=== PATIENT | male | born 1985 | race American Indian/Alaskan Native ===

== ENCOUNTER 2017-08-12 15:43 | Emergency (ER) | payer SELFPAY ==
[2017-08-12] MEDS ORDERED: Sodium Chloride 0.9% 2.5 ML Syringe FLUSH PRN (15:49)
[2017-08-12] MEDS ORDERED: Albuterol/Ipratropium 3.0-0.5 MG/3 ML Neb Soln NEB ONE (15:49)
[2017-08-12] MEDS ORDERED: Sodium Chloride 0.9% 1,000 ML IV ONE (15:49)
[2017-08-12] MEDS ORDERED: Sodium Chloride 0.9% 10 ML Syringe FLUSH PRN (15:49)
--- NOTE | 2017-08-12 15:52 | EDM.PDOC ---
ED HPI GENERAL MEDICAL PROBLEM - General Stated Complaint: TROUBLE BREATHING Time Seen by Provider: 08/12/17 15:48 - History of Present Illness INITIAL COMMENTS - FREE TEXT/NARRATIVE: HISTORY AND PHYSICAL: History of present illness: Patient 32-year-old male who reports a history of lung cancer for which he has not been treated and refuses treatment who uses albuterol nebulizer and presents with a concern of shortness of breath and medication refill he denies fever chills nausea vomiting or other concern he does agree to some diagnostic testing and breathing treatment while he is here was not interested in any other evaluation or further treatment. Pulse oximetry on arrival 97% Review of systems: As per history of present illness and below otherwise all systems reviewed and negative. Past medical history: As per history of present illness and as reviewed below otherwise noncontributory. Surgical history: As per history of present illness and as reviewed below otherwise noncontributory. Social history: No reported history of drug or alcohol abuse. Family history: As per history of present illness and as reviewed below otherwise noncontributory. Physical exam: HEENT: Atraumatic, normocephalic, pupils reactive, negative for conjunctival pallor or scleral icterus, mucous membranes moist, throat clear, neck supple, nontender, trachea midline. Lungs: Clear to auscultation, breath sounds equal bilaterally, chest nontender. Heart: S1S2, regular, negative for clicks, rubs, or JVD. Abdomen: Soft, nondistended, nontender. Negative for masses or hepatosplenomegaly. Negative for costovertebral tenderness. Pelvis: Stable nontender. Genitourinary: Deferred. Rectal: Deferred. Extremities: Atraumatic, negative for cords or calf pain. Neurovascular unremarkable. Neuro: Awake, alert, oriented. Cranial nerves II through XII unremarkable. Cerebellum unremarkable. Motor and sensory unremarkable throughout. Exam nonfocal. Diagnostics: CBC CMP troponin chest x-ray EKG urine drug screen Therapeutics: IV O2 monitor albuterol ipratropium nebulizer Impression: #1 dyspnea #2 history of lung cancer Definitive disposition and diagnosis as appropriate pending reevaluation and review of above. - Related Data Allergies Allergy/AdvReac Type Severity Reaction Status Date / Time No Known Allergies Allergy Verified 08/12/17 15:52 Home Meds: Home Meds Albuterol [Ventolin HFA] 1 puff Q6HR PRN 08/12/17 [History] ED ROS GENERAL - Review of Systems Review Of Systems: ROS reveals no pertinent complaints other than HPI. ED EXAM, GENERAL - Physical Exam Exam: See Below (See dictation) Course - Vital Signs Text/Narrative:: I discussed with patient admission for observation and further diagnostic testing and/or treatment as indicated patient declines remains adamant of disposition home with albuterol inhaler he'll be given clinic for follow-up and is encouraged to return as needed as discussed for any change in her he understands risks and benefit he remains alert and oriented 3 he is in no acute distress pulse oximetry remained 97% and respiratory rates is 20 Last Recorded V/S: Last Vital Signs Temp 35.7 C 08/12/17 15:47 Pulse 88 08/12/17 16:57 Resp 20 08/12/17 16:57 BP 161/91 H 08/12/17 16:57 Pulse Ox 98 08/12/17 16:57 - Orders/Labs/Meds Orders: Active Orders 24 hr Category Date Time Status Cardiac Monitoring [RC] . DIRECTED Care 08/12/17 15:48 Active EKG Documentation Completion [RC] STAT Care 08/12/17 15:48 Active Oxygen Therapy, ED [RC] ASDIRECTED Care 08/12/17 15:48 Active RT Aerosol Therapy [RC] ASDIRECTED Care 08/12/17 15:49 Active Chest 1V Frontal [CR] Stat Exams 08/12/17 15:49 Taken CULTURE BLOOD [BC] Stat Lab 08/12/17 15:50 Received CULTURE BLOOD [BC] Stat Lab 08/12/17 16:05 Received DRUG SCREEN, URINE [URCHEM] Stat Lab 08/12/17 16:40 Ordered Sodium Chloride 0.9% [Saline Flush] Med 08/12/17 15:49 Active 10 ml FLUSH ASDIRECTED PRN Sodium Chloride 0.9% [Saline Flush] Med 08/12/17 15:49 Active 2.5 ml FLUSH ASDIRECTED PRN Blood Culture x2 Reflex Set [OM.PC] Stat Oth 08/12/17 15:48 Ordered Saline Lock Insert [OM.PC] Stat Oth 08/12/17 15:48 Ordered Medication Orders Sodium Chloride (Saline Flush) 10 ml FLUSH ASDIRECTED PRN PRN Reason: Keep Vein Open Sodium Chloride (Saline Flush) 2.5 ml FLUSH ASDIRECTED PRN PRN Reason: Keep Vein Open Labs: Laboratory Tests 08/12/17 08/12/17 08/12/17 Range/Units 15:50 15:50 15:50 WBC 11.32 H (4.0-11.0) K/uL RBC 5.36 (4.50-5.90) M/uL Hgb 16.2 (13.0-17.0) g/dL Hct 46.4 (38.0-50.0) % MCV 86.6 (80.0-98.0) fL MCH 30.2 (27.0-32.0) pg MCHC 34.9 (31.0-37.0) g/dL RDW Std Deviation 42.3 (28.0-62.0) fl RDW Coeff of Donny 14 (11.0-15.0) % Plt Count 264 (150-400) K/uL MPV 10.00 (7.40-12.00) fL Neut % (Auto) 68.3 (48.0-80.0) % Lymph % (Auto) 20.8 (16.0-40.0) % [place] % (Auto) 9.1 (0.0-15.0) % Eos % (Auto) 1.5 (0.0-7.0) % Baso % (Auto) 0.3 (0.0-1.5) % Neut # (Auto) 7.7 H (1.4-5.7) K/uL Lymph # (Auto) 2.4 (0.6-2.4) K/uL [place] # (Auto) 1.0 H (0.0-0.8) K/uL Eos # (Auto) 0.2 (0.0-0.7) K/uL Baso # (Auto) 0.0 (0.0-0.1) K/uL Nucleated RBC % 0.0 /100WBC Nucleated RBCs # 0 K/uL INR 1.01 Sodium 138 (136-148) mmol/L Potassium 4.3 (3.5-5.1) mmol/L Chloride 103 (98-107) mmol/L Carbon Dioxide 25.7 (21.0-32.0) mmol/L BUN 18 (7.0-18.0) mg/dL Creatinine 0.9 (0.8-1.3) mg/dL Est Cr Clr Drug Dosing 128.14 mL/min Estimated GFR (MDRD) > 60.0 ml/min Glucose 93 (74-106) mg/dL Calcium 9.2 (8.5-10.1) mg/dL Total Bilirubin 0.4 (0.2-1.0) mg/dL AST 24 (15-37) IU/L ALT 33 (14-63) IU/L Alkaline Phosphatase 118 H (46-116) U/L Troponin I < 0.050 (0.000-0.056) ng/mL Total Protein 7.8 (6.4-8.2) g/dL Albumin 3.5 (3.4-5.0) g/dL Globulin 4.3 H (2.0-3.5) g/dL Albumin/Globulin Ratio 0.8 L (1.3-2.8) Meds: Medications Generic Name Dose Route Start Last Admin Trade Name Freq PRN Reason Stop Dose Admin Sodium Chloride 10 ml 08/12/17 15:49 Saline Flush FLUSH ASDIRECTED PRN Keep Vein Open Sodium Chloride 2.5 ml 08/12/17 15:49 Saline Flush FLUSH ASDIRECTED PRN Keep Vein Open Discontinued Medications Generic Name Dose Route Start Last Admin Trade Name Freq PRN Reason Stop Dose Admin Albuterol/Ipratropium 3 ml 08/12/17 15:49 08/12/17 16:01 Duoneb 3.0-0.5 Mg/3 Ml NEB 08/12/17 15:50 3 ml ONETIME ONE Administration Sodium Chloride 1,000 mls @ 999 mls/hr 08/12/17 15:49 08/12/17 16:04 Normal Saline IV 08/12/17 16:49 999 mls/hr STAT ONE Administration Departure - Departure Time of Disposition: 16:59 Disposition: Home, Self-Care 01 Condition: Good Clinical Impression: Dyspnea, Medical non-compliance - Discharge Information Additional Instructions: The following information is given to patients seen in the emergency department who are being discharged to home. This information is to outline your options for follow-up care. We provide all patients seen in our emergency department with a follow-up referral. The need for follow-up, as well as the timing and circumstances, are variable depending upon the specifics of your emergency department visit. If you don't have a primary care physician on staff, we will provide you with a referral. We always advise you to contact your personal physician following an emergency department visit to inform them of the circumstance of the visit and for follow-up with them and/or the need for any referrals to a consulting specialist. The emergency department will also refer you to a specialist when appropriate. This referral assures that you have the opportunity for followup care with a specialist. All of these measure are taken in an effort to provide you with optimal care, which includes your followup. Under all circumstances we always encourage you to contact your private physician who remains a resource for coordinating your care. When calling for followup care, please make the office aware that this follow-up is from your recent emergency room visit. If for any reason you are refused follow-up, please contact the [facility] emergency department at and asked to speak to the emergency department charge nurse. [facility] [address] [place], [place] [id number] Albuterol as prescribed and follow-up with clinic above call to schedule appointment return as needed as discussed[] - My Orders Last 24 Hours: My Active Orders 08/12/17 15:48 Cardiac Monitoring [RC] . DIRECTED EKG Documentation Completion [RC] STAT Oxygen Therapy, ED [RC] ASDIRECTED Blood Culture x2 Reflex Set [OM.PC] Stat Saline Lock Insert [OM.PC] Stat 08/12/17 15:49 RT Aerosol Therapy [RC] ASDIRECTED Chest 1V Frontal [CR] Stat Sodium Chloride 0.9% [Saline Flush] 10 ml FLUSH ASDIRECTED PRN Sodium Chloride 0.9% [Saline Flush] 2.5 ml FLUSH ASDIRECTED PRN 08/12/17 15:50 CULTURE BLOOD [BC] Stat 08/12/17 16:05 CULTURE BLOOD [BC] Stat 08/12/17 16:40 DRUG SCREEN, URINE [URCHEM] Stat - Assessment/Plan Last 24 Hours: My Active Orders 08/12/17 15:48 Cardiac Monitoring [RC] . DIRECTED EKG Documentation Completion [RC] STAT Oxygen Therapy, ED [RC] ASDIRECTED Blood Culture x2 Reflex Set [OM.PC] Stat Saline Lock Insert [OM.PC] Stat 08/12/17 15:49 RT Aerosol Therapy [RC] ASDIRECTED Chest 1V Frontal [CR] Stat Sodium Chloride 0.9% [Saline Flush] 10 ml FLUSH ASDIRECTED PRN Sodium Chloride 0.9% [Saline Flush] 2.5 ml FLUSH ASDIRECTED PRN 08/12/17 15:50 CULTURE BLOOD [BC] Stat 08/12/17 16:05 CULTURE BLOOD [BC] Stat 08/12/17 16:40 DRUG SCREEN, URINE [URCHEM] Stat
[2017-08-12 16:34] LABS: CHLORIDE,CL 103 mmol/L (98-107); SODIUM,NA 138 mmol/L (136-148)
--- NOTE | 2017-08-14 14:20 | CR ---
EXAM DATE: 08/12/17 PATIENT'S AGE: 32 Patient: HANNAH MEIER Facility: [place], [place] Site . Site : 1985 Study: XRay Chest [id number]/[id number] 4:12:22 PM Ordering Physician: Wilfred Cramer Final Report: INDICATION: Chest pain and shortness of breath. TECHNIQUE: AP portable upright chest 1600 hours 08/12/2017. FINDINGS: Monitoring leads overlie the chest wall. The lung volumes are diminished with elevation the right hemidiaphragm. No consolidative infiltrates or overt pulmonary vascular congestion. Prominent cardiac silhouette accentuated by portable AP technique. No obvious pleural effusions. Punctate density projects at the level of a left scapula near the glenoid is of uncertain etiology. It could represent an artifact. Impression : No acute radiographic chest finding. Dictated by Darren Heard MD @ Aug 12 2017 4:13PM (Electronic Signature) Report Signed by Proxy. HANSA
== END 2017-08-12 17:44 | disposition home or self-care (01) ==
LOC: MW.ED 15:43
DX: R06.00 Dyspnea, unspecified (principal); Z91.14 Patient's other noncompliance with medication regimen; Z85.118 Personal history of other malignant neoplasm of bronchus and lung
CPT/HCPCS: 36415; 71045; 80053; 80305; 84484; 85025; 85610; 87040; 93005; 94640; 96360; 99285; J7040; 99283